=== PATIENT | female | born 1985 | race Caucasian/White ===

== ENCOUNTER 2018-11-09 06:13 | Emergency (ER) | payer SELFPAY ==
[2018-11-09 08:38] LABS: APPEARANCE,URINE SLIGHTLY-CLOUDY; BILIRUBIN,URINE NEGATIVE (NEGATIVE); GLUCOSE, URINE NEGATIVE (NEGATIVE); KETONES,URINE 80 mg/dL (NEGATIVE); LEUKOCYTE ESTERASE,URINE SMALL (NEGATIVE); NITRITE,URINE NEGATIVE (NEGATIVE); PROTEIN,URINE 30 mg/dL (NEGATIVE); URINE SPECIFIC GRAVITY 1.027
[2018-11-09 08:39] LABS: COLOR,URINE YELLOW
--- NOTE | 2018-11-09 09:17 | ER Document Report ---
ED General - General Chief Complaint: Lower Abdominal Pain Stated Complaint: ABDOMINAL PAIN Time Seen by Provider: 11/09/18 08:22 Primary Care Provider: DANTE MARCUS MD [ACTIVE STAFF] - Follow up in 1 week Notes: Patient is a 33-year-old female who presents the emergency department with a chief complaint of bilateral lower abdominal pain. Her symptoms started yesterday. She admits to some nausea but denies any vomiting or diarrhea. Her last menstrual cycle was October 19. She denies any vaginal discharge or foul odor. TRAVEL OUTSIDE OF THE [place] IN LAST 30 DAYS: No - Related Data Allergies/Adverse Reactions: No Known Allergies Allergy (Verified 11/09/18 06:55) Past Medical History - Social History Smoking Status: Never Smoker Chew tobacco use (# tins/day): No Drug Abuse: None Family History: Reviewed & Not Pertinent Patient has suicidal ideation: No Patient has homicidal ideation: No Musculoskeletal Medical History: Reports Hx Arthritis - RA Past Surgical History: Reports: Hx Tubal Ligation Review of Systems - Review of Systems Notes: REVIEW OF SYSTEMS: CONSTITUTIONAL : Denies recent illness. Denies recent unintentional weight loss. Denies fever, chills, or sweats. EENT: Denies eye, ear, throat, or mouth pain, discharge, or symptoms. Denies nasal or sinus congestion. CARDIOVASCULAR: Denies chest pain. RESPIRATORY: Denies shortness of breath, cough, congestion, difficulty breathing, or wheezing. GASTROINTESTINAL: See HPI. GENITOURINARY: Denies difficulty urinating, burning, blood in urine, urgency or frequency. FEMALE GENITOURINARY: See HPI. MUSCULOSKELETAL: Denies neck and back pain. Denies joint pain or swelling. SKIN: Denies rash, itchiness, or lesions HEMATOLOGIC : Denies easy bruising or bleeding. LYMPHATIC: Denies swollen, painful, enlarged glands. NEUROLOGICAL: Denies no numbness or tingling denies weakness. Denies headache. Denies altered mental status. Denies alteration in speech. PSYCHIATRIC: Denies stress, anxiety, alteration in sleep patterns, or depression. All other systems reviewed and negative. Physical Exam - Vital signs Vitals: Temp Pulse Resp BP Pulse Ox 97.9 F 89 17 96/65 L 100 11/09/18 06:51 11/09/18 06:51 11/09/18 06:51 11/09/18 06:51 11/09/18 06:51 - Notes Notes: PHYSICAL EXAMINATION: GENERAL: Appears well, healthy, well-nourished, no acute distress. HEAD: Normocephalic, atraumatic. EYES: PERRL, conjunctiva normal, all extraocular movements intact, sclera nonicteric ENT: Moist mucous membranes. NECK: Supple, no noticeable swelling, redness, rash. Normal range of motion. LUNGS: Equal breath sounds bilaterally and clear to auscultation. No wheezes rales or rhonchi. CARDIOVASCULAR: S1-S2, regular rate, regular rhythm. Radial pulses 2+, normal. ABDOMEN: Normoactive bowel sounds. Soft, tender mid lower abdomen, mild guarding, no rebound tenderness, and no masses palpated. EXTREMITIES: Normal strength and range of motion, no pitting or edema. No cyanosis. NEUROLOGICAL: Moves all extremities upon command. Strength 5/5 in all extremities. PSYCH: Normal mood, normal affect. SKIN: Warm, dry. No rash, lesions, ulcerations noted. Normal skin turgor. 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 Patient has some motion tenderness noted. No adnexal tenderness. She will be treated for pelvic inflammatory disease. Awaiting transvaginal ultrasound. Hematology does not show any leukocytosis. Patient is mildly anemic with a hemoglobin of 11.8 and hematocrit of 34.7. Patient does have a small amount of leukocytes in her urine, which most likely is caused by her vaginal discharge. 11/09/18 11:45 Ultrasound shows good blood flow to both ovaries. No ovarian torsion noted. There is no ovarian abscess noted. Wet mount shows 4+ bacteria and 4+ red blood cell count. No yeast or trichomonas noted. Patient's chlamydia and gonorrhea came back positive for both of them. Patient will be treated with azithromycin and Rocephin here in the emergency department. I spoke with the patient and told her that everybody that she had sex with needs tested and treated for both gonorrhea and chlamydia. She will also be started on Flagyl and doxycycline to treat pelvic inflammatory disease. I did very low suspicion for septic day. Patient's vital signs are stable. Small amount of leukocytes in her urine will be treated with doxycycline. Follow-up precautions were given. Verbal discharge instructions were given to the patient. They verbalized understanding. They are stable for discharge. - Vital Signs Vital signs: Temp Pulse Resp BP Pulse Ox 98.0 F 89 17 116/73 99 11/09/18 11:33 11/09/18 11:33 11/09/18 06:51 11/09/18 11:33 11/09/18 11:33 - Laboratory Result Diagrams: 11/09/18 09:36 11/09/18 09:36 Laboratory results interpreted by me: 11/09/18 11/09/18 11/09/18 08:01 09:36 09:36 Hgb 11.8 L Hct 34.7 L [place] % (Auto) 13.5 H Urine Protein 30 H Urine Ketones 80 H Urine Blood SMALL H Urine Urobilinogen 4.0 H Ur Leukocyte Esterase SMALL H Chlamydia DNA (PCR) DETECTED H N.gonorrhoeae DNA (PCR) DETECTED H Discharge - Discharge Clinical Impression: Pelvic inflammatory disease (PID), Bacterial vaginosis Condition: Stable Disposition: HOME, SELF-CARE Additional Instructions: Your are being treated for pelvic inflammatory disease. You are being started on 2 different antibiotics and you need to take these until you finish them. Please return if you have worsening pain, persistent vomiting, spike a fever greater than 101F, or have any other symptoms that are concerning to you. Pl ease follow closely with you primary care physician or your [facility] at your earliest ability. You need to use protection every time you have sex. Failure to do so can result in transmission of infections or unintended . You have been treated for an sexually transmitted infection (STI) today. All of your partners should be tested and treated as they are also likely to be infected. Please return if you develop abdominal pain, fever, persistent vomiting, or any other symptoms that are concerning to you. Prescriptions: Doxycycline Hyclate 100 mg PO BID #28 capsule Metronidazole [Flagyl 500 mg Tablet] 500 mg PO Q6H #28 tablet Forms: Return to Work Referrals: DANTE MARCUS MD [ACTIVE STAFF] - Follow up in 1 week
[2018-11-09 09:49] LABS: ABSOLUTE EOSINOPHILS # (AUTO) 0.1 10^3/uL (0.0-0.6); ABSOLUTE LYMPHOCYTES (AUTO) 1.1 10^3/uL (0.5-4.7); ABSOLUTE MONOCYTES (AUTO) 0.7 10^3/uL (0.1-1.4); BASOPHILS % (AUTO) 0.5 % (0-2); EOSINOPHILS % (AUTO) 2.2 % (0-6); HEMATOCRIT 34.7 % (36.0-47.0); HEMOGLOBIN 11.8 g/dL (12.0-15.5); LYMPHOCYTES % (AUTO) 22.2 % (13-45); MEAN CORPUSCULAR HEMOGLOBIN 31.6 pg (27.0-33.4); MEAN CORPUSCULAR VOLUME 93 fl (80-97); MONOCYTES % (AUTO) 13.5 % (3-13); PLATELET COUNT 214 10^3/uL (150-450); RED BLOOD COUNT 3.74 10^6/uL (3.72-5.28); RED CELL DISTRIBUTION WIDTH 13.5 % (11.5-14.0); SEGMENTED NEUTROPHILS % (AUTO) 61.6 % (42-78); TOTAL CELLS COUNTED % (AUTO) 100 %; WHITE BLOOD COUNT 4.9 10^3/uL (4.0-10.5)
[2018-11-09 09:52] LABS: BACTERIA (WET MOUNT) 4+ BACTERIA SEEN; RBCS (WET MOUNT) 1+ RBCS SEEN; T.VAGINALIS (WET MOUNT) NO TRICHOMONAS SEEN; WBCS (WET MOUNT) 4+ WBCS SEEN; YEAST (WET MOUNT) NO YEAST SEEN
[2018-11-09 10:15] LABS: ALBUMIN 3.5 g/dL (3.5-5.0); ALKALINE PHOSPHATASE 89 U/L (38-126); ANION GAP 6 (5-19); ASPARTATE AMINO TRANSFERASE 16 U/L (14-36); BILIRUBIN,TOTAL 0.8 mg/dL (0.2-1.3); BLOOD UREA NITROGEN 14 mg/dL (7-20); CALCIUM 8.9 mg/dL (8.4-10.2); CARBON DIOXIDE 26 mmol/L (22-30); CHLORIDE 106 mmol/L (98-107); GLUCOSE 82 mg/dL (75-110)
--- NOTE | 2018-11-09 10:26 | RADIOLOGY REPORT (SQ) ---
EXAM DESCRIPTION: U/S NON OB PEL TV W/DOPPLER COMPLETED DATE/TIME: 11/09/2018 10:14 am REASON FOR STUDY: pelvic pain COMPARISON: None. TECHNIQUE: Dynamic and static grayscale images acquired of the pelvis via transvaginal approach and recorded on PACS. Additional selected color Doppler and spectral images recorded. LIMITATIONS: None. FINDINGS: UTERUS: The uterus measures 8.5 x 5.1 x 5.4 cm. The myometrium is homogeneous. There is no uterine mass. ENDOMETRIAL STRIPE: The endometrium measures 9 mm in thickness, which is normal. CERVIX: The cervix measures 1.8 cm in length. The echogenic foci with "dirty" shadowing in the endoc ervical canal could represent air. RIGHT OVARY AND DOPPLER: The right ovary measures 2 x 2.1 x 3.3 cm. On Doppler there is intact arter ial flow within the ovarian stroma. LEFT OVARY AND DOPPLER: The left ovary measures 3.7 x 2.5 x 3.1 cm. On Doppler there is intact arter ial inflow within the ovarian stroma. There is a 2.4 x 2.1 x 1.8 cm cystic, hypoechoic structure wit hin the left ovary that could represent an ovarian follicle or cyst. FREE FLUID: None. OTHER: No other finding. IMPRESSION: 1. Normal uterus and endometrium. 2. Air within the endocervical canal. 3. 2.4 x 2.1 x 1.8 cm left ovarian follicle or cyst. No evidence of torsion on Doppler. TECHNICAL DOCUMENTATION: JOB ID: [id number] [employer]- All Rights Reserved Reading location - IP/workstation name: [email or web address]
[2018-11-09 11:17] LABS: CHLAM PCR DETECTED (NOT DETECT)
[2018-11-09] MEDS ORDERED: AZITHROMYCIN 1 GM SUSP PACKET PO ONE (11:23)
[2018-11-09] MEDS ORDERED: LIDOCAINE 1% INJ-PF (10 MG/ML) 30 ML SDV INJ ONE (11:24)
[2018-11-09] MEDS ORDERED: CEFTRIAXONE INJ 250 MG VIAL IM ONE (11:24)
[2018-11-09 11:36] VITALS: BP 116/73
== END 2018-11-09 11:56 | disposition home or self-care (01) ==
LOC: ER 06:13
DX: N73.9 Female pelvic inflammatory disease, unspecified (principal); N76.0 Acute vaginitis; B96.89 Other specified bacterial agents as the cause of diseases classified elsewhere; A54.9 Gonococcal infection, unspecified; A74.9 Chlamydial infection, unspecified; R11.0 Nausea; D64.9 Anemia, unspecified; Z98.51 Tubal ligation status
CPT/HCPCS: 36415; 87210; 83690; 85025; 81025; 80053; 81001; 87491; 87591; 76830; 93976; J3490; Q0144; J0696

== ENCOUNTER 2019-02-16 18:44 | Emergency (ER) | payer SELFPAY ==
[2019-02-16 18:49] VITALS: BP 119/75
--- NOTE | 2019-02-16 19:36 | ER Document Report ---
HPI - HPI Patient complains to provider of: Sore throat, fatigue Time Seen by Provider: 02/16/19 19:28 Onset: Other - thursday Pain Level: 3 Context: This 33-year-old female relatively healthy presents emergency department with complaints of sore throat with white spots on her tonsils that started Thursday with some fatigue. Denies fever vomiting diarrhea. Unknown exposure to strep. Patient reports she works at a [employer] so possibly exposed to strep without knowing it. Patient talking with a clear voice respiratory rate even unlabored. Patient reports she is swallowing without problems. Associated Symptoms: Sore throat Exacerbated by: Denies Relieved by: Denies Similar symptoms previously: No Recently seen / treated by doctor: No - REPRODUCTIVE LMP: current Reproductive: DENIES: : Past Medical History - General Information source: Patient Last Menstrual Period: February 14, 2019 - Social History Smoking Status: Former Smoker Chew tobacco use (# tins/day): No Frequency of alcohol use: Occasional Drug Abuse: None Occupation: [employer] Family History: Reviewed & Not Pertinent Patient has suicidal ideation: No Patient has homicidal ideation: No Musculoskeletal Medical History: Reports Hx Arthritis - RA Past Surgical History: Reports: Hx Tubal Ligation Vertical Provider Document - CONSTITUTIONAL Agree With Documented VS: Yes Exam Limitations: No Limitations General Appearance: WD/WN, No Apparent Distress - INFECTION CONTROL TRAVEL OUTSIDE OF THE [place] IN LAST 30 DAYS: No - HEENT HEENT: Atraumatic, Normocephalic, Pharyngeal Exudate - Opens mouth wide good airway clear voice, Pharyngeal Erythema. negative: Conjuctival Injection, Tympanic Membrane Red, Tympanic Membrane Bulging - NECK Neck: Normal Inspection, Supple. negative: Lymphadenopathy-Left, Lymphadenopathy-Right - RESPIRATORY Respiratory: Breath Sounds Normal, No Respiratory Distress - CARDIOVASCULAR Cardiovascular: Regular Rate, Regular Rhythm - GI/ABDOMEN Gastrointestinal: Abdomen Soft, Abdomen Non-Tender - MUSCULOSKELETAL/EXTREMETIES Musculoskeletal/Extremeties: BRICE TORRES - NEURO Level of Consciousness: Awake, Alert, Appropriate Motor/Sensory: No Motor Deficit Course - Re-evaluation Re-evalutation: 02/16/19 21:29 33-year-old female presents to the emergency department with complaints of sore throat tonsillar exudate that just started. No known exposure to strep. Patient has clear voice opens mouth wide good airway. Strep test was negative mono was negative. Patient will be treated for tonsillar exudate with Pen-Vee K. She was instructed to monitor symptoms return for trouble swallowing worsening symptoms. She verbalized understanding to all instructions. - Vital Signs Vital signs: Temp Pulse Resp BP Pulse Ox 97.5 F 78 16 119/75 100 02/16/19 18:47 02/16/19 18:47 02/16/19 18:47 02/16/19 18:47 02/16/19 18:47 Discharge - Discharge Clinical Impression: Sore throat, Tonsillar exudate Condition: Stable Disposition: HOME, SELF-CARE Instructions: Penicillin V K (PENDING SALE TO [facility]), Sore Throat (PENDING SALE TO [facility]) Additional Instructions: *You have been evaluated for a sore throat, tonsillar exudate Your strep test was negative. A throat culture is pending. You may be contacted should you need to be treated with a different antibiotic *Take medication as prescribed *Gargle with warm salt water and suck on throat lozenges for comfort *Change toothbrush after two days of antibiotics *Do not let anyone drink/eat after you *Good hand washing *Follow-up with a primary care provider within 1 week for recheck *Return to ED for worsening condition change, needs Prescriptions: Penicillin V Potassium [Penicillin Vk 500 mg Tablet] 500 mg PO BID #20 tablet Forms: Return to Work
[2019-02-16] MEDS ORDERED: PENICILLIN V POTASSIUM 500 MG TABLET PO ONE (20:57)
== END 2019-02-16 21:31 | disposition home or self-care (01) ==
LOC: ER 18:44
DX: J02.9 Acute pharyngitis, unspecified (principal); R53.83 Other fatigue; Z87.891 Personal history of nicotine dependence
CPT/HCPCS: 36415; 86308; 87070; 87077; 87880; 99283

== ENCOUNTER 2019-07-11 12:23 | Emergency (ER) | payer SELFPAY ==
[2019-07-11 12:29] VITALS: BP 145/82
--- NOTE | 2019-07-11 13:00 | ER Document Report ---
HPI - HPI Time Seen by Provider: 07/11/19 12:57 Notes: Otherwise healthy 34-year-old female presents the emergency department requesting a work note to return to work. She states on Thursday which was 3 days ago she called in sick to work because she had a stomachache. She states that she had no nausea, vomiting, diarrhea or fevers. She reports that the stomachache resolved that day and she has been fine since then. She states she cannot go back to work without a work note. - REPRODUCTIVE Reproductive: DENIES: : Past Medical History - General Information source: Patient - Social History Smoking Status: Never Smoker Frequency of alcohol use: None Drug Abuse: None Family History: Reviewed & Not Pertinent - Medical History Medical History: Negative Musculoskeletal Medical History: Reports Hx Arthritis - RA Past Surgical History: Reports: Hx Tubal Ligation - Immunizations Immunizations up to date: Yes Vertical Provider Document - CONSTITUTIONAL Notes: PHYSICAL EXAMINATION: GENERAL: Well-appearing, well-nourished and in no acute distress. HEAD: Atraumatic, normocephalic. EYES: Pupils equal round extraocular movements intact, conjunctiva are normal. ENT: Nares patent NECK: Normal range of motion LUNGS: No respiratory distress Musculoskeletal: Normal range of motion NEUROLOGICAL: Normal speech, normal gait. PSYCH: Normal mood, normal affect. SKIN: Warm, Dry, normal turgor, no rashes or lesions noted. - INFECTION CONTROL TRAVEL OUTSIDE OF THE [place] IN LAST 30 DAYS: No Course - Re-evaluation Re-evalutation: 07/11/19 13:02 Patient appears well, nontoxic. Vital signs within normal limits. Patient declines any work-up today. She states she feels fine and just needs a work note to return to work tomorrow. - Vital Signs Vital signs: Temp Pulse Resp BP Pulse Ox 98.7 F 102 H 18 145/82 H 98 07/11/19 12:28 07/11/19 12:28 07/11/19 12:28 07/11/19 12:28 07/11/19 12:28 Discharge - Discharge Clinical Impression: Well adult exam Condition: Stable Disposition: HOME, SELF-CARE Additional Instructions: You are cleared to return to work tomorrow. Please return to the emergency department with any life-threatening concerns. Forms: Return to Work
== END 2019-07-11 13:02 | disposition home or self-care (01) ==
LOC: ER 12:23
DX: Z02.89 Encounter for other administrative examinations (principal)
CPT/HCPCS: 99281

== ENCOUNTER 2019-08-03 19:14 | Emergency (ER) | payer SELFPAY ==
[2019-08-03] MEDS ORDERED: TETRACAINE HCL 0.5% OPH SOLN 4 ML OU ONE (21:34)
--- NOTE | 2019-08-03 21:35 | ER Document Report ---
ED General - General Chief Complaint: Sore Throat Stated Complaint: SORE THROAT/LEFT EYE PAIN Time Seen by Provider: 08/03/19 20:50 Notes: 34-year-old female with history rheumatoid arthritis presents the emergency department complaining of a foreign body sensation to her left eye since . Denies any change in her vision, admits photophobia, denies any known injury. States that she has rheumatoid arthritis and knows she can get ulcers in her eye so she is wearing that she may have an ulcer in her eye. Is not currently on any medications for rheumatoid arthritis beyond ibuprofen. Also notes that she developed a sore throat today. Denies difficulty swallowing, denies fever, denies neck pain, chest pain or shortness of breath. TRAVEL OUTSIDE OF THE [place] IN LAST 30 DAYS: No - Related Data Allergies/Adverse Reactions: latex Allergy (Verified 02/16/19 19:26) Past Medical History - General Information source: Patient - Social History Smoking Status: Never Smoker Frequency of alcohol use: Occasional Drug Abuse: None Family History: Reviewed & Not Pertinent Musculoskeletal Medical History: Reports Hx Arthritis - RA Past Surgical History: Reports: Hx Tubal Ligation - Immunizations Immunizations up to date: Yes Review of Systems - Review of Systems Constitutional: No symptoms reported EENT: See HPI -: Yes All other systems reviewed and negative Physical Exam - Notes Notes: GENERAL: Alert, interacts well. No acute distress. HEAD: Normocephalic, atraumatic EYES: Pupils equal, round and reactive to light, extraocular movements intact. Small amount of mitchell injection to the left eye, no hyphema, no hypopyon. Slit lamp examination with fluorescein shows fluorescein uptake at approximately the 5 o'clock position in the left eye, no evidence of FB or corneal ulcer, more consistent with corneal abrasion. Pain resolves with application of tetracain. ENT: Oral mucosa moist, tongue midline. Nares patent, no nasal septal hematoma, TMs intact. Tonsillar exudate from the left tonsil, malodorous breath. NECK: Full range of motion, supple, trachea midline. No anterior cervical lymphadenopathy. LUNGS: Clear to auscultation bilaterally, no wheezes, rales or rhonchi, no respiratory distress. HEART: Regular rate and rhythm, no murmurs, gallops, rubs. ABDOMEN: Soft, nontender, nondistended, bowel sounds present in all 4 quadrants. EXTREMITIES: Moves all 4 extremities spontaneously. No cyanosis. NEUROLOGICAL: Alert and oriented x3, normal speech. PSYCH: Normal mood, normal affect. SKIN: Warm, Dry, normal turgor. Course - Re-evaluation Re-evalutation: 08/03/19 23:13 strep swab negative, no indication for systemic antibiotics for her sore throat. Discussed that this may be viral versus allergic, discussed gargling with salt water and continuing to take the ibuprofen for pain. There does appear to be a corneal abrasion at approximately 5 o'clock position, no evidence of hypopyon or specific ulceration at this time. Discussed with Dr. Bergman the deputy sheriff/investigator on-call who agrees to see the patient tomorrow. He did take demographic information so they could call her if she did not call them. Agrees with giving eyedrops 4 times a day and using preservative-free artificial tears hourly while awake. Discharge - Discharge Clinical Impression: Acute viral pharyngitis Corneal abrasion, left Qualifiers: Encounter type: initial encounter Qualified Code(s): S05.02XA - Injury of conjunctiva and corneal abrasion without foreign body, left eye, initial encounter Condition: Stable Disposition: HOME, SELF-CARE Additional Instructions: Please use the antibiotic eyedrops (Besivance) that we gave you here 1 drop 4 times a day. Please also use preservative-free artificial tears that you can buy at any drugstore or [facility] every 1 hour while you are awake. Please call the deputy sheriff/investigator office that I have listed on your discharge instructions first thing tomorrow morning. They open at 8 AM. They will work you into the schedule tomorrow and tell you what time to come to the office. Your sore throat appears to be viral. Please gargle salt water, continue taking ibuprofen for pain and return here for increasing pain, any fevers or any difficulty swallowing. Your strep swab is negative. There is no evidence of bacterial infection. Referrals: SULEMAN BERGMAN, DO [ACTIVE STAFF] - Follow up tomorrow
[2019-08-03] MEDS ORDERED: KETOROLAC TROMETHAMINE 0.45% 4 DROP/0.4 ML DROPERETTE OS ONE (22:28)
[2019-08-03] MEDS ORDERED: BESIFLOXACIN HCL 0.6% OPH SUSP 5 ML BOTTLE OS SCH (22:30)
[2019-08-03 23:23] VITALS: BP 124/75
[2019-08-04] MEDS ORDERED: BESIFLOXACIN HCL 0.6% OPH SUSP 5 ML BOTTLE ONE (00:07)
== END 2019-08-04 00:20 | disposition home or self-care (01) ==
LOC: ER 19:14
DX: S05.02XA Injury of conjunctiva and corneal abrasion without foreign body, left eye, initial encounter (principal); X58.XXXA Exposure to other specified factors, initial encounter; J02.8 Acute pharyngitis due to other specified organisms; B97.89 Other viral agents as the cause of diseases classified elsewhere; M06.9 Rheumatoid arthritis, unspecified; Z79.1 Long term (current) use of non-steroidal anti-inflammatories (NSAID); Z91.040 Latex allergy status
CPT/HCPCS: 87070; 87880; 99283

== ENCOUNTER 2019-08-05 17:16 | Emergency (ER) | payer SELFPAY ==
[2019-08-05] MEDS ORDERED: DEXAMETHASONE SOD PHOS INJ 10 MG/1 ML VIAL IV ONE (19:44)
[2019-08-05] MEDS ORDERED: CLINDAMYCIN 900 MG/D5W RTU 900 MG/50 ML RTUPB IV ONE (19:44)
--- NOTE | 2019-08-05 19:48 | ER Document Report ---
ED General - General Chief Complaint: Sore Throat Stated Complaint: SORE/SWOLLEN THROAT Notes: Patient is a 34-year-old white female with a past medical history of rheumatoid arthritis who presents to the emergency department with a chief complaint of sore throat that began 2 days ago on Thursday. The patient reports she was seen here and had a negative strep and throat culture. She states over the past 2 days the throat is worsened. She localizes it to the left side. Complains of swelling in the throat. Reports difficulty swallowing secretions secondary to pain. Denies any difficulty breathing. No tongue swelling admits to some difficulty opening the mouth. Denies any known fever chills or night sweats. No chest pain or cough. No abdominal pain. Status post prior tubal ligation. No known sick contacts or recent travel. TRAVEL OUTSIDE OF THE [place] IN LAST 30 DAYS: No - Related Data Allergies/Adverse Reactions: latex Allergy (Verified 02/16/19 19:26) Past Medical History - Social History Smoking Status: Unknown if Ever Smoked Family History: Reviewed & Not Pertinent Musculoskeletal Medical History: Reports Hx Arthritis - RA Past Surgical History: Reports: Hx Tubal Ligation - Immunizations Immunizations up to date: Yes Review of Systems - Review of Systems EENT: Throat pain -: Yes All other systems reviewed and negative Physical Exam - Vital signs Vitals: Temp Pulse Resp BP Pulse Ox 99.1 F 80 16 118/73 98 08/05/19 17:28 08/05/19 17:28 08/05/19 17:28 08/05/19 17:28 08/05/19 17:28 - General General appearance: Appears well, Alert In distress: None - HEENT Head: Normocephalic, Atraumatic Eyes: Normal Conjunctiva: Normal Extraocular movements intact: Yes Pupils: PERRL Ears: Normal External canal: Normal Tympanic membrane: Normal Nasal: Normal Mouth/Lips: Normal Mucous membranes: Normal Pharynx: Other - Tonsillar hypertrophy, left much worse than right. No obvious tonsillar or peritonsillar abscess formation. Patient has about a 2-1/2 finger trismus. She is handling secretions well. No muffled voice or hoarse voice. No hot potato voice. Uvula midline without edema or erythema. Airway patent. No sublingual or submental swelling. Neck: Lymphadenopathy, Supple - Respiratory Respiratory status: No respiratory distress Chest status: Nontender Breath sounds: Normal Chest palpation: Normal - Cardiovascular Rhythm: Regular Heart sounds: Normal auscultation - Abdominal Inspection: Normal Distension: No distension Bowel sounds: Normal Tenderness: Nontender Organomegaly: No organomegaly - Neurological Neuro grossly intact: Yes Cognition: Normal Orientation: AAOx4 - Psychological Associated symptoms: Normal affect, Normal mood - Skin Skin Temperature: Warm Skin Moisture: Dry Skin Color: Normal Course - Re-evaluation Re-evalutation: 08/05/19 21:45 Normal white count. Lab work otherwise largely unremarkable. CT scan showing a phlegmon but no abscess formation or fluid collection. Airway is patent as are the surrounding spaces. Patient was loaded with IV Decadron and clindamycin here given a liter normal saline some morphine for pain and some Zofran. She admitted she is hesitant regarding outpatient follow-up because of lack of insurance and financial restraint. I did discuss the importance of follow-up, preferably with an ENT but if not any ENT another provider who can reassess her current condition in 24 to 48 hours. We will send her home on a short course of oral steroids. Provide her with oropharyngeal lidocaine for symptomatic relief in the interim and she will continue clindamycin p.o. We will refer her to ENT. She will discuss with them any potential financial arrangements such as payment plans. I have advised she have a very low threshold for return to the emergency department, indicating that she return here or any ER immediately with any new, persistent or worsening symptoms. She verbalized understood and agreed. She is stable and appropriate for discharge and outpatient follow-up at this time. - Vital Signs Vital signs: Temp Pulse Resp BP Pulse Ox 99.1 F 81 17 117/67 100 08/05/19 20:44 08/05/19 20:01 08/05/19 20:01 08/05/19 20:01 08/05/19 20:01 - Laboratory Result Diagrams: 08/05/19 20:20 08/05/19 20:20 Laboratory results interpreted by me: 08/05/19 08/05/19 20:20 20:20 RDW 14.1 H [place] % (Auto) 13.4 H Sodium 135.8 L Potassium 3.4 L BUN 6 L Discharge - Discharge Clinical Impression: Tonsillitis Condition: Stable Disposition: HOME, SELF-CARE Instructions: Tonsillitis ([facility]) Additional Instructions: Follow-up with your regular doctor in 2 to 3 days for reevaluation, please see the ear, nose and throat doctor if possible. Return here or any ER immediately with any new, persistent or worsening symptoms. Prescriptions: Clindamycin HCl 300 mg PO Q6 #40 capsule Prednisone [Deltasone 20 mg Tablet] 2 tab PO DAILY #6 tablet Lidocaine HCl [Xylocaine 2% Viscous Soln 15 ml Udcup] 15 ml MM QID PRN #8 [id number] PRN Reason: Referrals: ROSS RICCI DO [ASSOCIATE] - Follow up as needed
[2019-08-05] MEDS ORDERED: NORMAL SALINE 1000 ML 1,000 ML IV ONE (19:50)
[2019-08-05 20:40] LABS: ABSOLUTE LYMPHOCYTES (AUTO) 1.4 10^3/uL (0.5-4.7); ABSOLUTE NEUT (AUTO) 5.2 10^3/uL (1.7-8.2); BASOPHILS % (AUTO) 0.3 % (0-2); EOSINOPHILS % (AUTO) 0.3 % (0-6); HEMATOCRIT 37.2 % (36.0-47.0); HEMOGLOBIN 12.8 g/dL (12.0-15.5); LYMPHOCYTES % (AUTO) 18.3 % (13-45); MEAN CORPUSCULAR HEMOGLOBIN 32.8 pg (27.0-33.4); MEAN CORPUSCULAR HGB CONC 34.5 g/dL (32.0-36.0); MEAN CORPUSCULAR VOLUME 95 fl (80-97); MONOCYTES % (AUTO) 13.4 % (3-13); PLATELET COUNT 195 10^3/uL (150-450); RED BLOOD COUNT 3.91 10^6/uL (3.72-5.28); RED CELL DISTRIBUTION WIDTH 14.1 % (11.5-14.0); SEGMENTED NEUTROPHILS % (AUTO) 67.7 % (42-78); TOTAL CELLS COUNTED % (AUTO) 100 %; WHITE BLOOD COUNT 7.7 10^3/uL (4.0-10.5)
[2019-08-05 20:59] LABS: ALBUMIN 3.7 g/dL (3.5-5.0); ALKALINE PHOSPHATASE 87 U/L (38-126); ANION GAP 6 (5-19); ASPARTATE AMINO TRANSFERASE 14 U/L (14-36); BILIRUBIN,TOTAL 0.8 mg/dL (0.2-1.3); BLOOD UREA NITROGEN 6 mg/dL (7-20); CALCIUM 8.8 mg/dL (8.4-10.2); CARBON DIOXIDE 25 mmol/L (22-30); CHLORIDE 105 mmol/L (98-107); GLUCOSE 85 mg/dL (75-110); POTASSIUM 3.4 mmol/L (3.6-5.0); TOTAL PROTEIN 7.2 g/dL (6.3-8.2)
[2019-08-05] MEDS ORDERED: MORPHINE SULFATE 10 MG/ML INJ IV ONE (21:18)
[2019-08-05] MEDS ORDERED: ONDANSETRON HCL INJ/PF 4 MG/2 ML SDV IV ONE (21:18)
--- NOTE | 2019-08-05 21:32 | RADIOLOGY REPORT (SQ) ---
EXAM DESCRIPTION: CT NECK WITH IV CONTRAST COMPLETED DATE/TME: 08/05/2019 19:44 CLINICAL HISTORY: 34 years, Female, Left tonsillar abscess? This exam was performed according to our departmental dose-optimization program which includes automated exposure control, adjustment of the mA and/or kVp according to patient size and/or use of iterative reconstruction technique where applicable. FINDINGS: There is moderate inflammation of the left tonsillar tissues with ill-defined hypodensity consistent with phlegmonous changes. No defined fluid collection. Aorta is mildly narrowed and mildly deviated to the right. The parapharyngeal and retropharyngeal spaces are well preserved. Mild bilateral neck lymphadenopathy, greater on the left than the right. Left cervical lymph nodes measure up to 1.1 cm. Parotid and submandibular glands are within normal limits. Thyroid is within normal limits. Orbits are intact. IMPRESSION: Left tonsillar inflammatory/phlegmonous changes.
[2019-08-05 22:31] VITALS: BP 131/84
== END 2019-08-05 22:36 | disposition home or self-care (01) ==
LOC: ER 17:16
DX: J03.90 Acute tonsillitis, unspecified (principal); Z91.040 Latex allergy status
CPT/HCPCS: 99283; 96361; 96375; 96365; 96368; 36415; 87040; 87070; 87880; 85025; 86308; 80053; 70491; J3490; J2270; J2405; J7030; J1100